=== PATIENT | male | born 2000 | race Caucasian/White ===

== ENCOUNTER 2024-04-12 12:46 | Emergency (ER) | payer OTHER ==
[2024-04-12] MEDS: Diphtheria,Pertussis(Acell),Tetanus Vaccine 0.5 ML Syringe IM ONE (13:30)
[2024-04-12] MEDS: Lidocaine 1% 50 ML MDV INJECT ONE (13:30)
[2024-04-12] MEDS: Bacitracin Oint 1 GM U/D Packet TOP ONE (14:27)
== END 2024-04-12 14:30 | disposition home or self-care (01) ==
LOC: JP.ED 12:46
DX: S61.211A Laceration without foreign body of left index finger without damage to nail, initial encounter (principal); Z23 Encounter for immunization; W26.0XXA Contact with knife, initial encounter
CPT/HCPCS: 12001; 90471; 90715; 99282; J2001